=== PATIENT | male | born 1990 | race American Indian/Alaskan Native ===

== ENCOUNTER 2018-08-13 21:19 | Emergency (ER) | payer OTHER ==
--- NOTE | 2018-08-14 00:24 | XRay Report ---
PROCEDURE: XR FINGER(S) 2+V right TECHNIQUE: Right THUMB finger radiographs, including AP, lateral, and oblique views. HISTORY: Right thumb laceration COMPARISONS: None . FINDINGS: Fracture (s) and/or Dislocation(s): None . Alignment: Normal . Joint space(s): Normal . Soft tissues: There is a soft tissue injury overlying the metacarpal phalangeal joint . Bone mineralization: Normal . Foreign bodies: None . IMPRESSION: No acute fracture. There is soft tissue injury overlying the metacarpophalangeal joint . This document is electronically signed by Meghan Harvey DO., August 14 2018 12:22:32 AM ET
--- NOTE | 2018-08-14 03:45 | Emergency Department Report ---
ED Laceration HPI - HPI Chief Complaint: Wound/Laceration Stated Complaint: HAND LAC Time Seen by Provider: 08/14/18 03:35 Occurred When: Today Severity: mild Tetanus Status: Up to Date Laceration Symptoms: Yes Pain, No Foreign Body Sensation, No Numbness, No Weakness Other History: 28-year-old -[place] gentleman presents to the emergency room for laceration of the right thumb and left buttock from a broken glass about 45 minutes prior to arrival. Patient had missed several times and being called secondary to being asleep in the waiting area. Patient reports this happened about 6 or 7 PM yesterday afternoon. Patient denies any past medical history takes no medications on a daily basis and is allergic to ibuprofen. ED Review of Systems ROS: Stated complaint: HAND LAC Other details as noted in HPI Comment: All other systems reviewed and negative Skin: other (cut to right thum and left buttocks. ) ED Past Medical Hx - Past Medical History Previous Medical History?: No - Surgical History Past Surgical History?: No - Social History Smoking Status: Never Smoker - Medications Home Medications: Home Medications Medication Instructions Recorded Confirmed Last Taken Type cephALEXin [Keflex] 500 mg PO Q12HR 7 Days #14 cap 08/14/18 Unknown Rx Laceration Physical Exam - Exam General: Vital signs noted. No distress. Alert and acting appropriately. Wound Length (cm): 2 (right thumb) Laceration Location: Other (1 cm laceration left buttocks) Laceration Exam: Yes Normal Distal CMS, No Foreign Body, No Exposed Tendon, Vessel, or Nerve, No Tendon Injury ED Course Vital Signs 08/13/18 08/13/18 21:32 23:18 Temperature 98.5 F 98.5 F Pulse Rate 111 H 103 H Respiratory 18 18 Rate Blood Pressure 134/80 134/80 O2 Sat by Pulse 97 97 Oximetry - Procedure Description Procedures done: Serration to the left buttocks approximately 1.5 cm. Area was cleaned with Betadine and lidocaine 2 mL. Suture was repaired with 5. 0 Prolene 4 sutures. Patient tolerated well. - Laceration /Wound Repair Right Finger Wound Location: head, upper extremity Wound Length (cm): 2 Wound's Depth, Shape: superficial Wound Explored: no foreign body removed Irrigated w/ Saline (ccs): 250 Betadine Prep?: Yes Anesthesia: 1% Lidocaine Volume Anesthetic (ccs): 2 Wound Repaired With: sutures Suture Size/Type: 3:0, proline Number of Sutures: 5 Layer Closure?: Yes Deep Layer Suture Size/Type: 3:0 Sterile Dressing Applied?: Yes Progress: tolerated well. ED Medical Decision Making - Radiology Data Radiology results: report reviewed Patient: NABEEL TORREZ MR#: [id number] : 1990 Acct:[id number] Age/Sex: 28 / M ADM Date: 08/13/18 Loc: ED Attending Dr: Ordering Physician: VANGIE IGLESIAS NP Date of Service: 08/13/18 Procedure(s): XR finger(s) 2+V RT Accession Number(s): [id number] cc: VANGIE IGLESIAS NP Fluoro Time In Minutes: PROCEDURE: XR FINGER(S) 2+V right TECHNIQUE: Right THUMB finger radiographs, including AP, lateral, and oblique views. HISTORY: Right thumb laceration COMPARISONS: None . FINDINGS: Fracture (s) and/or Dislocation(s): None . Alignment: Normal . Joint space(s): Normal . Soft tissues: There is a soft tissue injury overlying the metacarpal phalangeal joint . Bone mineralization: Normal . Foreign bodies: None . IMPRESSION: No acute fracture. There is soft tissue injury overlying the metacarpophalangeal joint . This document is electronically signed by Meghan Harvey DO., August 14 2018 12:22:32 AM ET Transcribed By: [facility] Dictated By: MEGHAN HARVEY MD Electronically Authenticated By: MEGHAN HARVEY MD Signed Date/Time: 08/14/18 0024 DD/ 0001 TD/TT: 08/14/18 0001 - Medical Decision Making 78-year-old male comes in for laceration to right thumb and left buttocks. Sutures were repaired. Patient tolerated procedure well. Patient be placed on Keflex prophylactically for infection since laceration to the right thumb is red PIP joint. Discussed the patient is to follow-up in 7-10 days for suture removal. Patient verbalized understanding. Critical care attestation.: If time is entered above; I have spent that time in minutes in the direct care of this critically ill patient, excluding procedure time. ED Disposition Clinical Impression: Laceration of thumb Qualifiers: Encounter type: initial encounter Damage to nail status: without damage Foreign body presence: without foreign body Laterality: right Qualified Code(s): S61.011A - Laceration without foreign body of right thumb without damage to nail, initial encounter Laceration of buttock Qualifiers: Encounter type: initial encounter Laterality: left Qualified Code(s): S31.821A - Laceration without foreign body of left buttock, initial encounter Disposition: DC-01 TO HOME OR SELFCARE Is pt being admited?: No Does the pt Need Aspirin: No Condition: Stable Instructions: Suture Care (ED), Laceration (ED) Additional Instructions: Keep wound clean and dry. Complete antibiotics as prescribed. Tylenol as needed for pain management. Return back to emergency room to have sutures removed in 7-10 days. Prescriptions: cephALEXin [Keflex] 500 mg PO Q12HR 7 Days #14 cap Referrals: JOSE CABALLERO MD [Primary Care Provider] - 3-5 Days
[2018-08-14] MEDS ORDERED: TYLENOL PO ONE (03:52)
[2018-08-14] MEDS ORDERED: ZOFRAN IM ONE (04:09)
[2018-08-14 05:35] VITALS: BP 121/78
== END 2018-08-14 05:34 | disposition home or self-care (01) ==
LOC: ED 21:19
DX: S61.011A Laceration without foreign body of right thumb without damage to nail, initial encounter (principal); S31.821A Laceration without foreign body of left buttock, initial encounter; W25.XXXA Contact with sharp glass, initial encounter; Y93.89 Activity, other specified; Y92.89 Other specified places as the place of occurrence of the external cause; Y99.8 Other external cause status
CPT/HCPCS: 12002; 73140; 96372; 99283; J2405